=== PATIENT | male | born 1950 | race Caucasian/White ===

== ENCOUNTER 2019-04-15 06:14 | Inpatient (IN) | payer MEDICARE, OTHER ==
[~2019-04-15] VITALS: Ht 167.6 cm; Wt 62.6 kg
[2019-04-17 07:00] VITALS: BP 134/81
== END 2019-04-17 11:20 | disposition home or self-care (01) | DRG 246 ==
LOC: ED 08:28 → EDIP 09:16 → 5SO 09:37
PROVIDERS: ADMIT Internal Medicine; ATTEND Internal Medicine
PROC: 027034Z Dilation of Coronary Artery, One Artery with Drug-eluting Intraluminal Device, Percutaneous Approach (ICD-10-PCS; principal; 2019-04-15)
PROC: 4A023N7 Measurement of Cardiac Sampling and Pressure, Left Heart, Percutaneous Approach (ICD-10-PCS; 2019-04-15)
PROC: B2111ZZ Fluoroscopy of Multiple Coronary Arteries using Low Osmolar Contrast (ICD-10-PCS; 2019-04-15)
PROC: B2151ZZ Fluoroscopy of Left Heart using Low Osmolar Contrast (ICD-10-PCS; 2019-04-15)
DX: I21.4 Non-ST elevation (NSTEMI) myocardial infarction (principal); I50.21 Acute systolic (congestive) heart failure; E87.1 Hypo-osmolality and hyponatremia; I25.110 Atherosclerotic heart disease of native coronary artery with unstable angina pectoris; I16.0 Hypertensive urgency; E87.6 Hypokalemia; E78.5 Hyperlipidemia, unspecified; F12.90 Cannabis use, unspecified, uncomplicated; R73.9 Hyperglycemia, unspecified; I25.5 Ischemic cardiomyopathy; R94.5 Abnormal results of liver function studies; I11.0 Hypertensive heart disease with heart failure; I44.7 Left bundle-branch block, unspecified; K21.9 Gastro-esophageal reflux disease without esophagitis; F19.10 Other psychoactive substance abuse, uncomplicated; Z88.0 Allergy status to penicillin; Z82.49 Family history of ischemic heart disease and other diseases of the circulatory system; Z87.891 Personal history of nicotine dependence; Z71.51 Drug abuse counseling and surveillance of drug abuser; Z72.89 Other problems related to lifestyle
CPT/HCPCS: 36415; 71045; 80053; 83036; 83880; 84443; 84484; 85025; 85379; 85520; 85610; 85730; 93005; 93306; 93458; 96374; 99156; 99157; 99285; C1769; C9600; G0378; J0583; J1644; J1650; J2250; J3010; C1725; C1874; C1887; J0360; J7030; Q9967